=== PATIENT | female | born 1990 | race Caucasian/White ===

== ENCOUNTER → 2017-11-07 | Outpatient (CLI) | payer BC ==
--- NOTE | 2017-11-07 14:48 | RAD ---
Abdominal ultrasound, 11/07/2017: History: Abnormal liver function test The gallbladder is within normal limits in size. There is no sonographic evidence of cholelithiasis. The gallbladder wall is not thickened. No bile duct dilatation is seen. The liver demonstrates increased echogenicity in a diffuse pattern, most commonly due to fatty change. No hepatic mass is evident. The visualized portions of the pancreatic body are unremarkable. Other portions of the pancreas were obscured by overlying bowel. The spleen is of normal size. No renal abnormality is detected. The abdominal aorta and inferior vena cava are unremarkable. No free fluid is evident in the abdomen. IMPRESSION: 1. Increased hepatic echogenicity suggesting fatty change. 2. No acute abdominal abnormality is detected.
== END | disposition home or self-care (01) ==
LOC: US 08:57
PROVIDERS: ATTEND Family Medicine
DX: R74.8 Abnormal levels of other serum enzymes (principal)
CPT/HCPCS: 76700

== ENCOUNTER → 2019-02-14 | Outpatient (CLI) | payer BC ==
--- NOTE | 2019-02-14 14:22 | RAD ---
ABDOMEN COMPLETE History: Abnormal liver enzymes Comparison: November 07, 2017 Findings: Multiple sonographic images of the abdomen are submitted. Gallbladder is present without intraluminal abnormality, wall thickening, pericholecystic fluid. No focal hepatic lesion is demonstrated. There is again some coarsening of the hepatic echotexture. Right lobe of liver measured 18.9 cm longitudinal. Right kidney measured 9.5 x 6 x 5.5 cm. Left kidney measured 9.9 x 6.4 x 6.1 cm. There is no hydronephrosis of either kidney. There is no abnormality of the visualized pancreas. There is no abnormality of the visualized spleen. There is segmental visualization of the inferior vena cava. Abdominal aortic caliber is within normal limits up to 1.5 cm. Impression: 1. There is again some coarsening of the hepatic echotexture probably due to steatosis, no other abnormality demonstrated. Electronically signed by: Cassius Reyes MD (02/14/2019 2:19 PM) [id number]
== END | disposition home or self-care (01) ==
LOC: US 09:47
PROVIDERS: ATTEND Family Medicine
DX: R74.8 Abnormal levels of other serum enzymes (principal)
CPT/HCPCS: 76700

== ENCOUNTER → 2021-06-29 | Outpatient (CLI) | payer BC ==
[2021-06-29 13:29] LABS: BASO % 1 % (0-3); EOS # 0.1 x10^3/uL (0.0-0.7); EOS % 1 % (0-3); HEMATOCRIT 40.4 % (36.0-47.0); HEMOGLOBIN 13.4 g/dL (12.0-15.5); LYMPH # 1.3 x10^3/uL (1.0-4.8); LYMPH % 16 % (24-48); MEAN CORPUSCULAR HEMOGLOBIN 31 pg (25-35); MEAN CORPUSCULAR HGB CONC 33 g/dL (31-37); MEAN CORPUSCULAR VOLUME 94 fL (79-100); MONO # 0.5 x10^3/uL (0.0-1.1); MONO % 7 % (0-9); NEUT # 6.1 x10^3uL (1.8-7.7); NEUT % 76 % (31-73); PLATELET COUNT 376 x10^3/uL (140-400); RED BLOOD COUNT 4.29 x10^6/uL (3.50-5.40); RED CELL DISTRIBUTION WIDTH 13.8 % (11.5-14.5)
[2021-06-29 13:36] LABS: ALBUMIN 3.8 g/dL (3.4-5.0); ALBUMIN/GLOBULIN RATIO 0.9 (1.0-1.7); CALCIUM 8.9 mg/dL (8.5-10.1); CREATININE 0.6 mg/dL (0.6-1.0); POTASSIUM 4.1 mmol/L (3.5-5.1); TOTAL BILIRUBIN 0.5 mg/dL (0.2-1.0); TOTAL PROTEIN 7.9 g/dL (6.4-8.2)
[2021-06-30 02:07] LABS: DHEA SO4 369.2 ug/dL (84.8-378.0); FSH 4.8 mIU/mL (.); LUTEINIZING HORMONE 5.7 mIU/mL (.); PROLACTIN 11.1 ng/mL (4.8-23.3)
[2021-06-30 04:08] LABS: HEMOGLOBIN A1C 5.3 % (4.8-5.6)
[2021-06-30 13:10] LABS: INSULIN LEVEL 47.3 uIU/mL (2.6-24.9)
[2021-06-30 14:58] LABS: THYROID STIM HORMONE (TSH) 1.191 uIU/mL (0.358-3.740)
== END ==
LOC: LAB 11:29
PROVIDERS: ATTEND Obstetrics & Gynecology
DX: E28.2 Polycystic ovarian syndrome (principal)
CPT/HCPCS: 36415; 80053; 80061; 82627; 82652; 83001; 83002; 83036; 83525; 84146; 84402; 84403; 84443; 85025

== ENCOUNTER → 2021-06-30 | Outpatient (CLI) | payer BC ==
--- NOTE | 2021-07-01 00:32 | RAD ---
US PELVIS COMPLETE History: Reason: IRREGULAR MENSES / Spl. Instructions: / History: Comparison: None Technique: Grayscale and color Doppler imaging of the pelvis was performed using transabdominal techn ique. Findings: The uterus measures 10.5 x 4.5 x 4.0 cm. Uterus has an unremarkable appearance. The endometrial str ipe measures 11 mm, within normal limits depending on phase of menstruation. Right ovary not well visualized due to overlying structures and positioning. Left ovary measures 2.7 x 2.4 x 1.7 cm. Normal Doppler flow to the left ovary. No adnexal masses are seen. IMPRESSION: 1. Unremarkable pelvic ultrasound. Electronically signed by: Roman Kennedy DO (07/01/2021 12:30 AM) [facility]
== END ==
LOC: US 15:54
PROVIDERS: ATTEND Obstetrics & Gynecology
DX: N92.6 Irregular menstruation, unspecified (principal)
CPT/HCPCS: 76856